=== PATIENT | male | born 1930 | race Caucasian/White ===

== ENCOUNTER 2021-10-11 08:57 | Inpatient (IN) | payer MEDICARE, BC ==
[2021-10-11] MEDS ORDERED: Succinylcholine 200 MG/10 ml SYRINGE FS ONE (09:07)
[2021-10-11] MEDS ORDERED: Midazolam HCl 5 mg/ml Vial ONE (09:32)
[2021-10-11 09:34] LABS: Mean Corpuscular HGB CONC 32.8 g/dL (32.0-36.0); Mean Corpuscular Hemoglobin 30.7 pg (27.0-31.0); Mean Corpuscular Volume 93.5 fL (78.0-98.0); Mean Platelet Volume 8.2 fL (7.4-10.4); Platelet Count 226 thou/uL (130-400); RBC Distribution Width 16.6 % (11.5-14.5); Red Blood Cell (RBC) Count 4.23 mill/uL (4.70-6.10); White Blood Cell (WBC) Count 11.1 thou/uL (4.8-10.8)
[2021-10-11 09:42] LABS: Actual Bicarbonate (HCO3a) 20.5 mEq/L (22-28); Analyzer IN Cardio ER; Base Excess (BEa) -5.4 mEq/L (-2.0 to +3.0); CO2 Tension 41.6 mmHg (35.0-45.0); Calcium, Ionized (arterial) 1.13 mmol/L (1.12-1.30); Carboxyhemoglobin (COHb) 0.3 gm% (0.0-3.0); Hemoglobin (Hb) 12.4 g/dL (14.0-18.0); O2 Tension (PaO2), arterial 66.1 mmHg (> 60.0); Potassium - ABG Lab 3.87 mmol/L (3.70-5.30); pH, Arterial 7.31 (7.35-7.45)
[2021-10-11 09:45] LABS: ALT (SGPT) 12 U/L (8-55); AST (SGOT) 19 U/L (5-34); Albumin 2.6 g/dL (3.4-4.8); Alkaline Phosphatase 129 U/L (40-110); Anion Gap 15 mmol/L (10-20); BUN (Urea Nitrogen) 39 mg/dL (8.4-25.7); Bilirubin, Total 1.1 mg/dL (0.2-1.2); Calc. Creatinine Clearance 0 mL/min (70-130); Calcium 8.1 mg/dL (7.8-10.44); Carbon Dioxide 20 mmol/L (23-31); Chloride 113 mmol/L (98-107); Globulin 2.8 g/dL (2.4-3.5); Glucose 235 mg/dL (83-110); Lipase Less than 4 U/L (8-78); Potassium 4.5 mmol/L (3.5-5.1); Protein, Total 5.4 g/dL (5.8-8.1); Sodium 143 mmol/L (136-145)
[2021-10-11 09:46] LABS: Puncture Site RRA
[2021-10-11 09:48] LABS: Bacteria/HPF None Seen HPF (None Seen); Bilirubin Negative (Negative); Blood, Urine Negative (Negative); Clarity Clear (Clear); Glucose, Urine (Dipstick) Normal (Negative); Ketone, Urine Negative (Negative); Leukocyte Negative Leu/uL (Negative); Nitrite Negative (Negative); Protein, Urine (Dipstick) 30 mg/dL (Neg-Trace); RBC/HPF 0-3 HPF (0-3); Specific Gravity, Urine 1.032 (1.002-1.036); Squamous Epithelial None Seen HPF (0-3); Urobilinogen 3 mg/dL (Less than 2); WBC/HPF 0-3 HPF (0-3); pH, Urine 5.5 (5.0-9.0)
[2021-10-11 09:54] LABS: Anisocytosis SLIGHT = 6-15 cells (100X) (0-5/hpf); Band 13 % (5-11); Burr Cells SLIGHT = 2-5 cells (100X) (0-1/hpf); Elliptocytes SLIGHT = 2-5 cells (100X) (0-1/hpf); Lymphocytes 17 % (21-51); MDiff Complete? YES; Monocytes 5 % (0-10); Neutrophil 64 % (42-75); Platelet Morphology Comment Appears Adequate; Reactive Lymphocytes 1 % (0-10); Schistocytes SLIGHT = 2-5 cells (100X) (0-1/hpf); Vacuoles SLIGHT
[2021-10-11] MEDS ORDERED: Cefepime 2 GM VIAL ONE (10:05)
[2021-10-11] MEDS ORDERED: Vancomycin 1 GM/200 ML BAG ONE (10:44)
[2021-10-11] MEDS ORDERED: Ondansetron PF 4 MG/2 ML Vial IVP PRN (10:51)
[2021-10-11] MEDS ORDERED: Electrolyte Replacement Protocol 1 EACH IVPB SCH (10:51)
[2021-10-11] MEDS ORDERED: Vancomycin 1.5 GRAM/300 ML BAG 1.5 GM in Premix Bag 1 BAG IVPB SCH (11:00)
[2021-10-11] MEDS ORDERED: Ventilator Sedation Protocol 1 EACH FS SCH (11:00)
[2021-10-11] MEDS ORDERED: fentaNYL Citrate/PF 2,000 MCG in Sodium Chloride 0.9% 60 ML IV SCH (11:15)
[2021-10-11] MEDS ORDERED: Propofol BOLUS 1,000 MG/100 ML VIAL IV PRN (11:15)
[2021-10-11] MEDS ORDERED: Propofol 1,000 MG/100 ML VIAL IV PRN (11:15)
[2021-10-11] MEDS ORDERED: Morphine 4 MG/ML VIAL SLOW IVP PRN (11:15)
[2021-10-11] MEDS ORDERED: Fentanyl BOLUS 250 ML IVPB PRN (11:15)
[2021-10-11] MEDS ORDERED: Lorazepam 2 MG/ML VIAL SLOW IVP PRN (11:15)
[2021-10-11] MEDS ORDERED: DISCONTINUE PREVIOUS NARCOTIC PAIN MEDICATIONS AND BENZODIAZEPINES FS SCH (11:15)
[2021-10-11] MEDS ORDERED: HumaLOG 300 UNITS/3 ML VIAL SC PRN (11:19)
[2021-10-11] MEDS ORDERED: Dextrose 5% in Water 1,000 ML IV PRN (11:19)
[2021-10-11] MEDS ORDERED: Dextrose 50% Abboject 50 ML SYRINGE SLOW IVP PRN (11:19)
[2021-10-11] MEDS ORDERED: DC Sedation Protocol FS SCH (11:55)
[2021-10-11] MEDS: Morphine 4 MG/ML VIAL SLOW IVP PRN ×3 (12:22→22:51)
[2021-10-11] MEDS: Lorazepam 2 MG/ML VIAL SLOW IVP PRN ×2 (12:23→17:35)
[2021-10-11] MEDS ORDERED: metroNIDAZOLE 500 MG in Premix Bag 1 BAG IVPB SCH (14:00)
[2021-10-11 16:23] LABS: SARS-CoV-2 PCR by NAA Not Detected (NotDetected)
[2021-10-11] MEDS ORDERED: Apixaban 5 MG TAB PO SCH (21:00)
[2021-10-11] MEDS ORDERED: Famotidine/PF 20 mg/2ml Vial SLOW IVP SCH (21:00)
[2021-10-11] MEDS ORDERED: Cefepime 2 GM in Sodium Chloride 0.9% 100 ML IVPB SCH (21:00)
[2021-10-11] MEDS ORDERED: Vancomycin HCl 1.5 GM in Sodium Chloride 0.9% 250 ML 300 ML IVPB SCH (21:00)
[2021-10-11] MEDS ORDERED: Vancomycin HCl 750 MG in Sodium Chloride 0.9% 250 ML 250 ML IVPB SCH (23:00)
[2021-10-12 00:05] VITALS: TEMP 98
[2021-10-12] MEDS: Morphine 4 MG/ML VIAL SLOW IVP PRN ×4 (02:28→16:14)
[2021-10-12] MEDS ORDERED: Pantoprazole 40 MG GRANULES PACKET PER TUBE SCH (09:00)
== END 2021-10-12 17:25 | disposition hospice, inpatient (51) | DRG 871 ==
LOC: ERS 08:57 → CCU 09:09 → T4-A 10-12 01:08
PROVIDERS: ADMIT Internal Medicine; ATTEND Internal Medicine
PROC: 5A1935Z Respiratory Ventilation, Less than 24 Consecutive Hours (ICD-10-PCS; principal; 2021-10-11)
PROC: 0BH17EZ Insertion of Endotracheal Airway into Trachea, Via Natural or Artificial Opening (ICD-10-PCS; 2021-10-11)
PROC: 3E03329 Introduction of Other Anti-infective into Peripheral Vein, Percutaneous Approach (ICD-10-PCS; 2021-10-11)
PROC: 0D9670Z Drainage of Stomach with Drainage Device, Via Natural or Artificial Opening (ICD-10-PCS; 2021-10-11)
DX: A41.9 Sepsis, unspecified organism (principal); J18.9 Pneumonia, unspecified organism; J96.01 Acute respiratory failure with hypoxia; J69.0 Pneumonitis due to inhalation of food and vomit; E87.2 Acidosis; J44.0 Chronic obstructive pulmonary disease with (acute) lower respiratory infection; Z20.822 Contact with and (suspected) exposure to COVID-19; Z66 Do not resuscitate; Z51.5 Encounter for palliative care; R65.20 Severe sepsis without septic shock; F03.90 Unspecified dementia, unspecified severity, without behavioral disturbance, psychotic disturbance, mood disturbance, and anxiety; E11.9 Type 2 diabetes mellitus without complications; E78.5 Hyperlipidemia, unspecified; N40.0 Benign prostatic hyperplasia without lower urinary tract symptoms; I11.0 Hypertensive heart disease with heart failure; I50.9 Heart failure, unspecified; I48.0 Paroxysmal atrial fibrillation; Z86.73 Personal history of transient ischemic attack (TIA), and cerebral infarction without residual deficits; Z95.1 Presence of aortocoronary bypass graft; Z95.0 Presence of cardiac pacemaker; Z79.899 Other long term (current) drug therapy; Z79.01 Long term (current) use of anticoagulants; Z79.84 Long term (current) use of oral hypoglycemic drugs; Z95.828 Presence of other vascular implants and grafts; Z82.49 Family history of ischemic heart disease and other diseases of the circulatory system; Z87.891 Personal history of nicotine dependence; Z95.5 Presence of coronary angioplasty implant and graft
CPT/HCPCS: 36600; 71045; 80053; 81003; 81015; 82805; 83605; 83690; 83880; 84145; 84484; 85025; 87040; 87086; 93005; 94002; J0692; J1956; J2060; J2250; J2270; J3370; U0003; U0005

== ENCOUNTER 2021-10-12 17:35 | Inpatient (IN) | payer BC, MEDICARE, OTHER ==
[2021-10-12] MEDS ORDERED: Ondansetron PF 4 MG/2 ML Vial IVP PRN (18:00)
[2021-10-12] MEDS ORDERED: diphenhydrAMINE 50 MG/ML VIAL IVP PRN (18:00)
[2021-10-12] MEDS ORDERED: Scopolamine 1.5 mg/72 hour Patch TOP PRN (18:00)
[2021-10-12] MEDS ORDERED: Acetaminophen 650 MG Suppository PR PRN (18:00)
[2021-10-12] MEDS ORDERED: Senokot 8.6 MG TAB PO PRN (18:00)
[2021-10-12] MEDS ORDERED: Promethazine HCl 25 MG SUPP PR PRN (18:00)
[2021-10-12] MEDS ORDERED: Haloperidol Lactate 5 MG/ML VIAL SLOW IVP PRN (18:00)
[2021-10-12] MEDS: Morphine 4 MG/ML VIAL SLOW IVP PRN (20:41)
[2021-10-12] MEDS: Lorazepam 2 MG/ML VIAL SLOW IVP PRN (21:30)
[2021-10-13] MEDS: Morphine 4 MG/ML VIAL SLOW IVP PRN ×3 (07:15→19:37)
[2021-10-14] MEDS: Morphine 4 MG/ML VIAL SLOW IVP PRN ×2 (05:16→14:12)
[2021-10-14] MEDS: Lorazepam 2 MG/ML VIAL SLOW IVP PRN ×2 (06:21→14:32)
[2021-10-15] MEDS: Morphine 4 MG/ML VIAL SLOW IVP PRN ×3 (09:21→12:57)
[2021-10-15] MEDS: Lorazepam 2 MG/ML VIAL SLOW IVP PRN (13:26)
[2021-10-15] MEDS: Morphine 4 MG/ML VIAL SLOW IVP SCH ×2 (17:14→23:15)
[2021-10-16] MEDS: Morphine 4 MG/ML VIAL SLOW IVP SCH ×4 (05:34→23:07)
[2021-10-16] MEDS: Lorazepam 2 MG/ML VIAL SLOW IVP PRN (05:34)
[2021-10-17] MEDS: Morphine 4 MG/ML VIAL SLOW IVP SCH ×4 (05:48→23:26)
[2021-10-17] MEDS: Lorazepam 2 MG/ML VIAL SLOW IVP PRN (10:10)
[2021-10-18] MEDS: Morphine 4 MG/ML VIAL SLOW IVP SCH ×3 (05:23→16:43)
[2021-10-18 08:20] VITALS: TEMP 94.6
[2021-10-18 08:47] VITALS: BP 65/40
[2021-10-18] MEDS: Lorazepam 2 MG/ML VIAL SLOW IVP PRN (10:17)
== END 2021-10-18 15:10 | disposition expired | DRG 951 ==
LOC: T4-A 17:35
PROVIDERS: ADMIT Family Medicine; ATTEND Family Medicine
DX: Z51.5 Encounter for palliative care (principal); Z66 Do not resuscitate; J69.0 Pneumonitis due to inhalation of food and vomit; E46 Unspecified protein-calorie malnutrition; F03.91 Unspecified dementia, unspecified severity, with behavioral disturbance; J44.9 Chronic obstructive pulmonary disease, unspecified; E11.9 Type 2 diabetes mellitus without complications; I48.91 Unspecified atrial fibrillation; I11.0 Hypertensive heart disease with heart failure; I50.9 Heart failure, unspecified; I95.89 Other hypotension
CPT/HCPCS: J2060; J2270